=== PATIENT | male | born 1995 ===

== ENCOUNTER 2020-10-16 15:27 | Emergency (ER) | payer SELFPAY ==
[2020-10-16 19:54] VITALS: BP 112/69
== END 2020-10-16 21:40 | disposition home or self-care (01) ==
LOC: ED 15:27
DX: S93.402A Sprain of unspecified ligament of left ankle, initial encounter (principal); S93.602A Unspecified sprain of left foot, initial encounter; Z79.899 Other long term (current) drug therapy; X50.1XXA Overexertion from prolonged static or awkward postures, initial encounter; Y93.89 Activity, other specified; Y92.89 Other specified places as the place of occurrence of the external cause; Y99.8 Other external cause status